=== PATIENT | female | born 1985 | race Asian ===

== ENCOUNTER → 2019-11-13 | Outpatient (CLI) | payer MEDICAID ==
--- NOTE | 2019-11-13 13:55 | RAD ---
EXAM: Left ankle, 3 views. HISTORY: Fall. COMPARISON: None. FINDINGS: 3 views of the left ankle are obtained. There is no fracture, dislocation or subluxation. The ankle mortise is intact. There is no osteochondral lesion. IMPRESSION: No acute osseous finding. Electronically signed by: Jerri Waldrop MD (11/13/2019 1:52 PM) [id number]
== END | disposition home or self-care (01) ==
LOC: PMG 09:55
PROVIDERS: ATTEND Physician Assistant
DX: R22.41 Localized swelling, mass and lump, right lower limb (principal)
CPT/HCPCS: 73610

== ENCOUNTER 2020-09-21 16:54 | Emergency (ER) | payer MEDICAID ==
[~2020-09-21] VITALS: Ht 160 cm; Wt 63.0 kg
[2020-09-21 17:15] VITALS: BP 137/90
--- NOTE | 2020-09-21 17:56 | PHYS DOC ---
Past History Past Surgical History: No Surgical History, Cholecystectomy (CONNOR VASQUES APRN) Alcohol Use: None (CONNOR VASQUES APRN) Adult General Chief Complaint Chief Complaint: GENERALIZED BODY ACHES [facility] HPI Patient is a 34-year-old female patient who presents with generalized body aches. Patient reports she has been feeling this way for couple days, states she just feels very uncomfortable. States no fevers, however states she does feel very warm and get sweaty at night sometimes. States no nausea, no vomiting, she had one episode of diarrhea today. States no headaches. She had tried some ibuprofen earlier today, last took 600 mg ibuprofen at 1 PM. Patient reports she is tested twice a week at her job for Covid, and has been testing negative every time. States no cough, no shortness of breath states he just feels like she is aching throughout her entire body. States she has had some low abdominal pain, also reports she does have a history of a prior ectopic . States last ectopic was approximately 15 years ago. She is not on control at this time, reports she does not believe she is however she did have a menstrual cycle 1 month ago and was a little irregular. (CONNOR VASQUES APRN) Review of Systems Review of Systems Constitutional: Denies fever states she is feeling chills at night Eyes: Denies change in visual acuity, redness, or eye pain [] HENT: Denies nasal congestion or sore throat [] Respiratory: Denies cough or shortness of breath [] Cardiovascular: No additional information not addressed in HPI [] GI: Denies nausea, vomiting, bloody stools [] states she had one episode of diarrhea today, denies any blood in her stool. States she has had some lower left abdominal pain intermittently : Denies dysuria or hematuria [] Musculoskeletal: Denies back pain or joint pain [] reports generalized body aches Integument: Denies rash or skin lesions [] Neurologic: Denies headache, focal weakness or sensory changes [] Endocrine: Denies polyuria or polydipsia [] All other systems were reviewed and found to be within normal limits, except as documented in this note. (CONNOR VASQUES APRN) Allergies Allergies Allergies Coded Allergies Type Severity Reaction Last Updated Verified No Known Drug Allergies 09/21/20 No (CONNOR VASQUES APRN) Physical Exam Physical Exam Constitutional: Well developed, well nourished, no acute distress, non-toxic appearance. [] HENT: Normocephalic, atraumatic, bilateral external ears normal, oropharynx moist, no oral exudates, nose normal. [] Eyes: PERRLA, EOMI, conjunctiva normal, no discharge. [] Neck: Normal range of motion, no tenderness, supple, no stridor. [] Cardiovascular:Heart rate regular rhythm, no murmur [] Lungs & Thorax: Bilateral breath sounds clear to auscultation [] Abdomen: Bowel sounds normal, soft, no masses, no pulsatile masses. [] Tenderness observation to left lower abdomen. No masses noted. Abdomen soft. Skin: Warm, dry, no erythema, no rash. [] Back: No tenderness, no CVA tenderness. [] Extremities: No tenderness, no cyanosis, no clubbing, ROM intact, no edema. [] Neurologic: Alert and oriented X 3, normal motor function, normal sensory function, no focal deficits noted. [] Psychologic: Affect normal, judgement normal, mood normal. [] (CONNOR VASQUES APRN) Current Patient Data Vital Signs Vital Signs Date Time Temp Pulse Resp B/P (MAP) Pulse Ox O2 Delivery O2 Flow Rate FiO2 09/21/20 17:15 99.1 111 16 137/90 95 Room Air (CONNOR VASQUES APRN) EKG EKG [] (CONNOR VASQUES APRN) Radiology/Procedures Radiology/Procedures PATIENT: VIOLETA LISA MACCOUNT: [id number]#: [id number] : 1985 LOCATION: ER AGE: 35 SEX: F EXAM STATUS: REG ER ORD. PHYSICIAN: CONNOR VASQUES APRN REASON: LLQ Pain, Fever, OMNI 300, 75ml PROCEDURE: CT ABD PELV W/ IV CONTRST ONLY CT ABDOMEN+PELVIS W History: Left lower quadrant pain. Fever. Comparison: None. Technique: CT of the abdomen and pelvis with intravenous contrast. Findings: There is a peripherally enhancing 4.1 x 2.6 x 2.7 cm cyst within the left ovary. The uterus and right ovary are unremarkable. The bladder is within normal limits. Trace fluid in the pelvic cul-de-sac. No intra-abdominal free air. The lungs are clear. Heart is unremarkable. Status post cholecystectomy. The liver, pancreas, spleen, adrenal glands, and kidneys are unremarkable. Mild wall thickening of the stomach is likely related to underdistention. The small bowel is unremarkable. Normal appendix. Normal colon. Soft tissues are wit hin normal limits. The osseous structures are unremarkable for age. Transitional anatomy at the lumbosacral junction. Impression: 1. Peripherally enhancing left ovarian cystic lesion measuring up to 4.1 cm. In the setting of fever, this would be concerning for tubo-ovarian abscess. Alternatively a corpus luteum cyst can have similar appearance without infection. ------ Exposure: One or more of the following individualized dose reduction techniques were utilized for this examination: 1. Automated exposure control 2. Adjustment of the mA and/or kV according to patient size 3. Use of iterative reconstruction technique. Electronically signed by: Dwight Kent MD (09/21/2020 8:13 PM) [facility] [] (CONNOR VASQUES APRN) Heart Score C/O Chest Pain: No Risk Factors: Risk Factors: DM, Current or recent (<one month) smoker, HTN, HLP, family history of CAD, obesity. Risk Scores: Risk Factors: DM, Current or recent (<one month) smoker, HTN, HLP, family history of CAD, obesity. (CONNOR VASQUES APRN) Course & Med Decision Making Course & Med Decision Making Pertinent Labs and Imaging studies reviewed. (See chart for details) []Patient reporting she is continuing to feel achy and miserable. With elevated WBC will evaluate abdomen. REporting left lower quadrant pain. K low @2.9. Will provide PO dosing. Given imaging, with leukocytosis normal urine without bacteriuria, considerations for tubo-ovarian abscess and ovarian cyst. With history of fever, will treat for ovarian abscess, as PID. Will give patient dose of Rocephin at this time, with outpatient Flagyl and doxy patient also endorses recurring vaginal bleeding with intercourse. Will have patient withhold intercourse while under treatment, recommend follow-up with [facility]. (CONNOR VASQUES APRN) Dragon Disclaimer Dragon Disclaimer This electronic medical record was generated, in whole or in part, using a voice recognition dictation system. (CONNOR VASQUES APRN) Attending Co-Sign The patient was seen and interviewed as well as examined at the bedside. The chart was reviewed. The case was discussed. Agree with the plan of care. (GLORIA CARRASCO DO) Departure Departure: Impression: Primary Impression: Tubo-ovarian abscess Additional Impressions: Hypokalemia Malaise and fatigue Disposition: HOME / SELF CARE / HOMELESS Condition: STABLE Referrals: DERICK ESPARZA (PCP) Patient Instructions: Hypokalemia, Pelvic Inflammatory Disease Additional Instructions: As discussed take the antibiotics as prescribed for the entire duration, even if you are feeling better before they are completed Make sure you are eating a sufficient diet Tylenol and ibuprofen as needed for discomfort Avoid intercourse for at least the next 2-3 weeks while on the antibiotic Follow up with your primary care provider or OBGYN for further evaluation. Avoid alcohol while taking the Metronidazole. If you drink alcohol with this antibiotic, it will make you very ill. Avoid alcohol for at least 48 hours after taking the medication to prevent this interaction. Scripts Doxycycline Hyclate (DOXYCYCLINE HYCLATE) 100 Mg Capsule 1 CAP PO BID for abscess for 14 Days, #28 CAP Prov: CONNOR VASQUES APRN 09/21/20 Metronidazole (FLAGYL) 500 Mg Tablet 500 MG PO BID for abscess for 14 Days, #28 TAB Prov: CONNOR VASQUES APRN 09/21/20 Problem Qualifiers CONNOR VASQUES APRN Sep 21, 2020 17:56 GLORIA CARRASCO DO Sep 23, 2020 06:31
[2020-09-21] MEDS ORDERED: IV NORMAL SALINE 1,000ML 1,000 ML IV ONE (18:00)
[2020-09-21 18:58] LABS: BASO # 0.1 x10^3/uL (0.0-0.2); BASO % 1 % (0-3); EOS # 0.1 x10^3/uL (0.0-0.7); EOS % 0 % (0-3); HEMATOCRIT 40.4 % (36.0-47.0); LYMPH # 1.5 x10^3/uL (1.0-4.8); LYMPH % 10 % (24-48); MEAN CORPUSCULAR HEMOGLOBIN 33 pg (25-35); MEAN CORPUSCULAR HGB CONC 35 g/dL (31-37); MEAN CORPUSCULAR VOLUME 96 fL (79-100); MONO # 1.2 x10^3/uL (0.0-1.1); MONO % 8 % (0-9); NEUT # 12.5 x10^3uL (1.8-7.7); NEUT % 81 % (31-73); PLATELET COUNT 212 x10^3/uL (140-400); RED BLOOD COUNT 4.21 x10^6/uL (3.50-5.40); WHITE BLOOD COUNT 15.4 x10^3/uL (4.0-11.0)
[2020-09-21 19:09] LABS: ALBUMIN 3.3 g/dL (3.4-5.0); ALBUMIN/GLOBULIN RATIO 0.9 (1.0-1.7); CALCIUM 8.5 mg/dL (8.5-10.1); CREATININE 0.6 mg/dL (0.6-1.0); GFR 113.8; TOTAL BILIRUBIN 0.8 mg/dL (0.2-1.0); TOTAL PROTEIN 7.1 g/dL (6.4-8.2)
[2020-09-21 19:12] LABS: POTASSIUM 2.9 mmol/L (3.5-5.1)
[2020-09-21] MEDS ORDERED: IOHEXOL 300 MG/ML 75 ML VIAL. IV ONE (19:15)
[2020-09-21] MEDS ORDERED: POTASSIUM CHLORIDE 20 MEQ TABLET.ER. PO ONE (19:15)
[2020-09-21 19:16] LABS: BILIRUBIN,URINE NEG (NEG); CLARITY,URINE HAZY; COLOR,URINE YELLOW; GLUCOSE,URINE NEG (NEG)
[2020-09-21 19:17] LABS: BACTERIA,URINE 0 /HPF (0-FEW); NITRITE,URINE NEG (NEG); SQUAMOUS EPITHELIAL CELL,UR FEW /LPF; WBC,URINE OCC /HPF (0-4)
--- NOTE | 2020-09-21 20:15 | RAD ---
CT ABDOMEN+PELVIS W History: Left lower quadrant pain. Fever. Comparison: None. Technique: CT of the abdomen and pelvis with intravenous contrast. Findings: There is a peripherally enhancing 4.1 x 2.6 x 2.7 cm cyst within the left ovary. The uterus and right ovary are unremarkable. The bladder is within normal limits. Trace fluid in the pelvic cul-de-sac. N o intra-abdominal free air. The lungs are clear. Heart is unremarkable. Status post cholecystectomy. The liver, pancreas, spleen, adrenal glands, and kidneys are unremarkabl e. Mild wall thickening of the stomach is likely related to underdistention. The small bowel is unremark able. Normal appendix. Normal colon. Soft tissues are within normal limits. The osseous structures ar e unremarkable for age. Transitional anatomy at the lumbosacral junction. Impression: 1. Peripherally enhancing left ovarian cystic lesion measuring up to 4.1 cm. In the setting of fever , this would be concerning for tubo-ovarian abscess. Alternatively a corpus luteum cyst can have yasmin lar appearance without infection. ------ Exposure: One or more of the following individualized dose reduction techniques were utilized for thi s examination: 1. Automated exposure control 2. Adjustment of the mA and/or kV according to patient size 3. Use of iterative reconstruction technique. Electronically signed by: Dwight Kent MD (09/21/2020 8:13 PM) [facility]
[2020-09-21] MEDS ORDERED: DOXY100C3 PO (20:37)
[2020-09-21] MEDS ORDERED: METR500T PO (20:37)
[2020-09-21] MEDS ORDERED: cefTRIAXone SODIUM 1 GM VIAL ONE (20:47)
[2020-09-21] MEDS ORDERED: IV NORMAL SALINE 50ML 50 ML ONE (20:47)
[2020-09-21 21:36] LABS: % ATYL 1 % (0-0); % BANDS 1 % (0-9); % LYMPHS 6 % (24-48); % METAS 1 % (0-0); % MONOS 7 % (0-10); % SEGS 84 % (35-66); PLT ESTIMATE ADEQUATE (ADEQUATE)
== END 2020-09-21 21:03 | disposition home or self-care (01) ==
LOC: ER 16:54
DX: N70.93 Salpingitis and oophoritis, unspecified (principal); E87.6 Hypokalemia; R53.81 Other malaise; R53.83 Other fatigue; Z90.49 Acquired absence of other specified parts of digestive tract
CPT/HCPCS: 36415; 74177; 80053; 81001; 81025; 83605; 85007; 85025; 96361; 96374; 99285; J0696; J7030; Q9967